=== PATIENT | female | born 1955 | race Caucasian/White ===

== ENCOUNTER 2019-06-29 10:32 | Emergency (ER) | payer OTHER ==
--- OUTSIDE RECORDS SUMMARY | 2019-06-29 10:43 | XMS REPORT | Summary of Care ---
:1955 Author Organization [facility] Address [address] [place] [address] Care Team Providers Name Role Phone Radha Quiñones Primary Care Provider Reason for Referral External Surgery Case (Routine) Status Reason Specialty Diagnoses / Procedures Referred By Contact Referred To Contact Open Diagnoses Endometrial cancer, grade I Earl Melgar Procedures Surgery Case Request, Outside Facilty ONLY MD Leisa [address] [place] [address] [place] [phone] Email: [email or web address] Reason for Visit Reason Comments Consult endometrial cancer Encounter Details Date Type Department Care Team Description 06/08/2019 Office Visit Rust Earl Melgar Endometrial cancer, [place] [facility] MD grade I (Primary Dx) [address] [place] [phone] Allergies No Known Allergiesdocumented as of this encounter (statuses as of 06/08/2019) Medications Medication Sig Dispensed Refills Start Date End Date Status buPROPion HCl ER (XL) 0 03/21/2019 Active 300 MG Oral Tablet Extended Release 24 Hour (WELLBUTRIN XL) miSOPROStol 200 MCG 0 04/26/2019 Active Oral Tablet (CYTOTEC) Rosuvastatin Calcium 10 0 03/21/2019 Active MG Oral Tablet (CRESTOR) [place]-3 Fatty Acids Take 1 capsule by 0 Active (FISH OIL PO) mouth daily Calcium Take 1 tablet by 0 Active Carbonate-Vitamin D mouth daily 500-200 MG-UNIT Oral Tablet (OSCAL-500) Vitamin D3 25 MCG (1000 Take 1,000 Units 0 Active UT) Oral Tablet by mouth daily (CHOLECALCIFEROL) documented as of this encounter (statuses as of 06/08/2019) Active Problems Problem Noted Date Endometrial cancer, grade I 06/08/2019 documented as of this encounter (statuses as of 06/08/2019) Social History Tobacco Use Types Packs/Day Years Used Date Current Every Day Smoker 0.5 40 Smokeless Tobacco: Never Used Tobacco Cessation: Ready to Quit: Yes Comments: down to 4 cigarettes per day Alcohol Use Drinks/Week oz/Week Comments Not Currently Sex Assigned at Date Recorded Not on file Job Start Date Occupation Industry Not on file Not on file Not on file Travel History Travel Start Travel End No recent travel history available. documented as of this encounter Last Filed Vital Signs Vital Sign Reading Time Taken Comments Blood Pressure 143/79 06/08/2019 1:56 PM EST Pulse 81 06/08/2019 1:56 PM EST Temperature - - Respiratory Rate 18 06/08/2019 1:56 PM EST Oxygen Saturation - - Inhaled Oxygen Concentration - - Weight 77.6 kg (171 lb) 06/08/2019 1:56 PM EST Height 162.6 cm (5' 4") 06/08/2019 1:56 PM EST Body Mass Index 29.35 06/08/2019 1:56 PM EST documented in this encounter Patient Instructions Patient InstructionsPeggy Joseph MD - 06/08/2019 2:00 PM EST Family History Problem Relation Age of Onset Breast cancer Mother 71 diagnosed stage IV COPD Father Uterine cancer Sister 55 Diabetes Sister High cholesterol Brother Breast cancer Sister 56 diagnosed stage IV Diabetes Sister Crohn's disease Brother Breast cancer Maternal Aunt documented in this encounter Progress Notes Earl Melgar Jr., MD - 06/08/2019 2:00 PM ESTThe patient was seen and evaluated with Dr. Joseph. I agree with the findings, documentation and plan as written. The patient has an important trip planned for early July so if we cannot complete the surgery prior to her trip we plan to start provera 10 mg daily and will proceed KRISTINE after her return. Peggy Diaz MD - 2019 2:00 PM EST Subjective: Consult (endometrial cancer) HPI: Nicole Rojas is a 64 y.o. female with past medical history most pertinent for dyslipidemia who presents as a new patient for FIGO grade 1 endometrial cancer. She has history of bleeding/spotting 2 years ago and was diagnosed with "fibroids." Uterine biopsy was reportedly negative at that time. She has not had bleeding since. She had a routine pap smear in April 2019 which showed atypical glandular cells. This prompted a colonoscopy with ECC and biopsy showing CIN1, and endometrial biopsy showing grade 1 endometrial adenocarcinoma. She reports no associated symptoms. She denies abnormal bleeding, appetite change, bladder change, bloating, bowel change, constipation, diarrhea, cramping , dyspnea, dyspareunia, fatigue, malaise, nausea , pain in the abdomen, pain in the pelvis, vaginal discharge, vomiting and weight loss. Medication List: Current Outpatient Medications: buPROPion HCl ER (XL) 300 MG Oral Tablet Extended Release 24 Hour ( WELLBUTRIN XL), Calcium Carbonate-Vitamin D 500-200 MG-UNIT Oral Tablet (OSCAL-500), 1 tablet, Oral, Daily miSOPROStol 200 MCG Oral Tablet (CYTOTEC), [place]-3 Fatty Acids (FISH OIL PO), 1 capsule, Oral, Daily Rosuvastatin Calcium 10 MG Oral Tablet (CRESTOR), Vitamin D3 25 MCG (1000 UT) Oral Tablet (CHOLECALCIFEROL), 1,000 Units, Oral, Daily Allergies: Patient has no known allergies. Gynological History: No LMP recorded (lmp unknown). postmenopausal Age at Menarche: 13 Age at First : 28 Age at Menopause: 52 [place] history comments: Substance and Sexual Activity Sexual Activity Not Currently OB History 2 Para 2 Term AB Living Live Births Oncology History: No history exists. Past Medical History: Diagnosis Date Abnormal colonoscopy 2017 "20 polyps" precancerous, repeating soon Dyslipidemia Genetic testing BRCA 1/2 negative per patient, 2018 patient reports extended testing negative Osteopenia Tobacco abuse Past Surgical History: Procedure Laterality Date Appendectomy 1993 Oophorectomy Left Tubal ligation 1985 Social History: reports that she has been smoking. She has a 20.00 pack-year smoking history. She has never used smokeless tobacco. She reports previous alcohol use. She reports that she does not use drugs. Family History Problem Relation Age of Onset Breast cancer Mother 71 diagnosed stage IV COPD Father Uterine cancer Sister 55 Diabetes Sister High cholesterol Brother Breast cancer Sister 56 diagnosed stage IV Diabetes Sister Crohn's disease Brother Breast cancer Maternal Aunt Review of Systems Constitutional: Negative. HENT: Negative. Eyes: Negative. Respiratory: Negative. Cardiovascular: Negative. Gastrointestinal: Negative. Genitourinary: Negative. Musculoskeletal: Negative. Skin: Negative. Allergic/Immunologic: Negative. Neurological: Negative. Psychiatric/Behavioral: Positive for substance abuse. Nervous/anxious: tobacco, quitting with Wellbutrin. Objective: Visit Vitals BP 143/79 Pulse 81 Resp 18 Ht 1.626 m (5' 4") Wt 77.6 kg (171 lb) LMP (LMP Unknown) BMI 29.35 kg/m Physical Exam Constitutional: General: She is not in acute distress. Genitourinary: Vulva, urethra, vagina, cervix, uterus and rectum normal. No right or left adnexal mass present. HENT: Head: Normocephalic. Eyes: Conjunctiva/sclera: Conjunctivae normal. Neck: Musculoskeletal: Normal range of motion and neck supple. Cardiovascular: Rate and Rhythm: Normal rate and regular rhythm. Pulses: Normal pulses. Pulmonary: Effort: Pulmonary effort is normal. Breath sounds: Normal breath sounds. Chest: Breasts: Breasts are symmetrical. Right: No mass. Left: No mass. Abdominal: General: Abdomen is flat. Bowel sounds are normal. There is no distension. Palpations: Abdomen is soft. There is no mass. Musculoskeletal: Normal range of motion. General: No swelling. Lymphadenopathy: Cervical: No cervical adenopathy. Neurological: General: No focal deficit present. Mental Status: She is alert and oriented to person, place, and time. Skin: General: Skin is warm and dry. Psychiatric: Mood and Affect: Mood normal. Behavior: Behavior normal. Data reviewed: 1. Labs: Pap Smear and Pathology Assessment and Plan: Encounter Diagnosis Name Primary? Endometrial cancer, grade I Yes Plan for total laparoscopic hysterectomy, bilateral salpingo oophorectomy with sentinel lymph node sampling, possible open abdominal surgery if needed. Risks , benefits, alternatives to surgery discussed and the patient was agreeable to proceed. She would like to go on vacation in [place] the first week of July. We discussed schedulingand will call her. If surgery will be delayed due to the vacation, discussed starting progestin hormone therapy in the interim. No orders of the defined types were placed in this encounter. No follow-ups on file. The patient was seen and discussed with Dr. Melgar. documented in this encounter Plan of Treatment Health Maintenance Due Date Last Done Comments Hepatitis C Screening (B. 1955 [id number]) MMR Vaccines (1 of 1 - Standard 1957 series) Varicella Vaccines (1 of 2 - 1957 2-dose childhood series) Pneumococcal Vaccine: Pediatrics 1962 (0 to 5 Years) and At-Risk Patients (6 to 64 Years) (1 of 3 - PCV13) DTaP,Tdap,and Td Vaccines (1 - 1963 Tdap) HIV Screening 1969 Cervical Cancer Screening 5 years 1977 Breast Cancer Screening 2 years 2006 Colon Cancer Screening 10 yrs 2006 Zoster Vaccines (1 of 2) 2006 Influenza Vaccine 01/04/2019 Pneumococcal Vaccine: 65+ Years (1 2021 of 2 - PCV13) HIB Vaccines Aged Out No longer eligible based on patient's age to complete this topic Hepatitis A Vaccines Aged Out No longer eligible based on patient's age to complete this topic Hepatitis B Vaccines Aged Out No longer eligible based on patient's age to complete this topic IPV Vaccines Aged Out No longer eligible based on patient's age to complete this topic documented as of this encounter Procedures Procedure Name Priority Date/Time Associated Diagnosis Comments SURGERY CASE REQUEST Routine 06/08/2019 5:10 PM Endometrial cancer, OUTSIDE FACILITY ONLY EST grade I documented in this encounter Results Not on filedocumented in this encounter Visit Diagnoses Diagnosis Endometrial cancer, grade I - Primary documented in this encounter
--- OUTSIDE RECORDS SUMMARY | 2019-06-29 10:43 | XMS REPORT | Continuity of Care Document ---
:1955 External Reference #:[id number] Author Name Radha Banegas RPA-C, MHP (transmitted by agent of provider Natalia Joseph) Address [address] [place] [id number] Problems Active Problems Provider Date Osteochondropathy Radha Banegas RPA-C, MHP Onset: 05/27/2019 Gynecologic examination Jade Marshall MD Onset: 04/13/2018 Intramural leiomyoma of uterus Jade Marshall MD Onset: 11/18/2017 Postmenopausal bleeding Jade Marshall MD Onset: 11/18/2017 Family history of cancer Elisa Mar NP Onset: 01/19/2012 Abnormal cervical Papanicolaou smear Elisa Mar NP Onset: 02/06/2011 Social History Type Date Description Comments Sex Unknown Tobacco Use Start: Unknown Current Cigarette Smoker 5-10 Cigarettes Daily ETOH Use Rarely consumes alcohol Recreational Drug Use Never Used Drugs Tobacco Use Start: Unknown Patient is a current smoker, smokes every day Smoking Status Reviewed: 04/18/19 Patient is a current smoker, smokes every day Exercise Type/Frequency exercises regularly Exercise Type/Frequency 3-4 times per week walking and working out in the garden Seat Belt/Car Seat always uses seat belt Allergies, Adverse Reactions, Alerts Active Allergies Reaction Severity Comments Date NKDA 09/22/2006 Cantaloupe 01/02/2011 Medications Active Medications SIG Qnty Indications Ordering Date Provider Misoprostol one tab 1tabs Lea Butt, 04/26/2019 200mcg intravaginally 18 MD Tablets hours prior to procedure. Fish Oil 2 x qd Unknown 1000mg Capsules Calcium 500/D Unknown [id number] Chewtabs Multivitamins Unknown Capsules Wellbutrin XL 1 by mouth every day( Unknown 150mg taking to stop Tablets ER 24HR smoking and with her anxiety) Crestor every day Unknown 10mg Tablets Immunizations Description No Information Available Vital Signs Date Vital Result Comment 05/27/2019 9:04am BP Systolic 138 mmHg BP Diastolic 80 mmHg Weight 174.00 lb Height 63 inches 5'3" BMI (Body Mass Index) 30.8 kg/m2 04/18/2019 2:37pm BP Systolic 128 mmHg BP Diastolic 76 mmHg Weight 174.00 lb Height 63 inches 5'3" BMI (Body Mass Index) 30.8 kg/m2 Results Test Acquired Date Facility Test Result H/L Range Note Laboratory test 05/27/2019 [facility] <pending> finding hology Laboratory test 04/18/2019 [facility], Apt Note Abnormal 1 finding HPV,rfx 16/18,45 PDF [id number] SEE IMAGE 1 TESTS RESULT FLAG UNITS REF RANGE LAB Clinician Provided Cytology Information Source.............Endocervix;Vagina Other..............Post Menopausal No. of containers..01 ThinPrep Vial DIAGNOSIS: [A] 01 EPITHELIAL CELL ABNORMALITY. ATYPICAL GLANDULAR CELLS (AGC). Specimen adequacy: 01 Satisfactory for evaluation. Endocervical and/or squamous metaplastic cells (endocervical component) are present. Clinician ICD10: Z12.4 Performed by: Chrissy Jimenez, Building Estimator ([facility]) QC reviewed by: Cate Day Building Estimator ([facility]) Electronic signed by Brayan Saba MD, Pathologist . 01 Pathologist ICD10: R87.619 Note: Note 01 The Pap smear is a screening test designed to aid in the detection of premalignant and malignant conditions of the uterine cervix. It is not a diagnostic procedure and should not be used as the sole means of detecting cervical cancer. Both false-positive and false-negative reports do occur. Test Methodology: Note 01 This liquid based ThinPrep(R) pap test was screened with the use of an image guided system. HPV Aptima Negative (Negative) 02 This nucleic acid amplification test detects fourteen high-risk HPV types (16,18,31,33,35,39,45,51,52,56,58,59,66,68) without differentiation. FLAG LEGEND: L-Low Normal,H-High Normal,LL-Alert Low,HH-Alert High <-Panic Low,>-Panic High,A-Abnormal,AA-Critical Abnormal Performed at: 01 [facility] [address] [place] [phone] Brayan Saba MD, 02 [facility] [address] [place] [phone] Brayan Saba MD, Procedures Date Code Description Status 05/27/2019 82020 Endometrial Biopsy W/O Cervical Dilation Completed 05/27/2019 25964 Colposcopy Of Cervix W/Biopsy Cervix/Endocervical Completed Curettage 04/06/2018 64319322 Mammogram Completed 04/06/2017 29753941 Colonoscopy Completed 04/06/2010 810348245 Bone Mineral Density Test Completed Medical Devices Description No Information Available Encounters Type Date Location Provider Dx Diagnosis Office Visit 05/27/2019 [facility] Radha Banegas, R87.619 Unsp abnormal 9:15a RPA-C, P cytolog findings in specmn from cervix uteri M85.89 Oth disrd of bone density and structure, multiple sites Office Visit 04/18/2019 3:00p [place] [facility] Lea Butt, Z01.419 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 (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) (routine) w/o abn findings Z80.3 Family history of malignant neoplasm of breast Assessments Date Code Description Provider 05/27/2019 R87.619 Unspecified abnormal cytological Radha Banegas, JIAN-C, MHP findings in specimens from cervix uteri 05/27/2019 M85.89 Other specified disorders of bone Radha Banegas RPA-C, MHP density and structure, multiple sites 04/18/2019 Z01.419 Encounter for gynecological Lea Butt MD examination (general) (routine) without abnormal findings 04/18/2019 Z80.3 Family history of malignant neoplasm Lea Butt MD of breast Plan of Treatment 05/27/2019 - Radha Banegas RPA-C, MHPR87.619 Unspecified abnormal cytological findings in specimens from cervix uteriComments:Reviewed pap findings and indication for colposcopy and endometrial biopsy. Consent obtained. Colposcopy and endometrial biopsy performed today. Please see procedure note. Post colposcopy instructionsverbally reviewed and instruction sheet provided.Follow up:FYE 04/20207806U03.89 Other specified disorders of bone density and structure, multiple sitesComments:Reviewed finding of osteopenia of hip and spine per dexa scan done on 05/02/19. Advised weight-bearing exercise, calcium 1200mmg daily and vitamin D3 2000IU daily. Functional Status Functional Condition Comment Date Status Glasses Active Mental Status Description No Information Available Referrals Description No Information Available
--- OUTSIDE RECORDS SUMMARY | 2019-06-29 10:43 | XMS REPORT | Continuity of Care Document ---
:1955 External Reference #:[id number] Author Name Fransisco Waller PA Address [address] [facility], [address] [place] [address] Care Team Providers Name Role Phone Stefanie Ramirez M.D. - Family Medicine Care Team Information [employer] Problems Active Problems Provider Date First degree hemorrhoids Levar Goins MD Onset: 08/12/2017 Diverticular disease of colon Levar Goins MD Onset: 08/12/2017 Benign neoplasm of colon Levar Goins MD Onset: 08/12/2017 Screening for malignant neoplasm of colon Levar Goins MD Onset: 05/29/2017 Social History Type Date Description Comments Sex Unknown Smokeless Tobacco Never Used Smokeless Tobacco ETOH Use Rarely consumes alcohol Tobacco Use Start: Unknown Light tobacco smoker (10 or fewer cigarettes/day) Recreational Drug Use Denies Drug Use Smoking Status Reviewed: 06/02/19 Light tobacco smoker (10 or fewer cigarettes/day) Allergies, Adverse Reactions, Alerts Description No Known Drug Allergies Medications Active Medications SIG Qnty Indications Ordering Date Provider Suprep Bowel Prep Kit as directed 354ml Z12.11 Umberto Darnell, 06/02/2019 17.5-3.13-1.6GM/177ML Solution Gas-X as directed pre 2units Z12.11 Umberto Darnell, 06/02/2019 80mg Chewtabs colonscopy Fish Oil Extra 2 po q Am Unknown Strength 1200mg Capsules Multivitamin Adult 1 by mouth every Unknown day Tablets Benefiber 2 tabs by mouth Unknown Powder every day every evening Bupropion HCL ER (XL) once daily Stefanie Ramirez M.D. 150mg Tablets ER 24HR Vitamin D3 Complete 2000 iu daily Unknown Tablets Rosuvastatin Calcium Take 1 Tablet By Unknown Mouth Every Day 10mg Tablets Every Night Immunizations Description No Information Available Vital Signs Date Vital Result Comment 06/02/2019 11:30am BP Systolic Sitting Left Arm 120 mmHg BP Diastolic Sitting Left Arm 88 mmHg Body Temperature 97.7 F Heart Rate 81 /min Respiratory Rate 16 /min Height 66 inches 5'6" Weight 173.00 lb Pain Level 0 BMI (Body Mass Index) 27.9 kg/m2 BSA (Body Surface Area) 1.88 m2 [place] body weight in kilograms 59 kg O2 % BldC Oximetry 97 % 08/12/2017 2:21pm BP Systolic Sitting Right Arm 120 mmHg BP Diastolic Sitting Right Arm 84 mmHg Heart Rate 86 /min Respiratory Rate 18 /min Height 66 inches 5'6" Weight 174.00 lb BMI (Body Mass Index) 28.1 kg/m2 BSA (Body Surface Area) 1.88 m2 [place] body weight in kilograms 59 kg Results Description No Information Available Procedures Date Code Description Status 06/16/2017 17748691 Colonoscopy Completed Medical Devices Description No Information Available Encounters Type Date Location Provider Dx Diagnosis Office Visit 06/02/2019 11:15a [facility] Fransisco Waller PA K63.5 Polyp of colon Z12.11 Encounter for screening for malignant neoplasm of colon Assessments Date Code Description Provider 06/02/2019 K63.5 Polyp of colon Fransisco Waller PA 06/02/2019 Z12.11 Encounter for screening for malignant Fransisco Waller PA neoplasm of colon Plan of Treatment Future Appointment(s):08/08/2019 4:00 pm - Fransisco Waller PA at GI2019 1:30 pm - Fransisco Waller PA at GI06/02/2019 - Fransisco Waller PAK63.5 Polyp of scechV67.11 Encounter for screening for malignant neoplasm of colonNew Medication:Suprep Bowel Prep Kit 17.5-3.13-1.6 GM/177ML - as directedGas-X 80 mg - as directed pre colonscopyNew Orders:Colonoscopy, Ordered : 06/02/19 Functional Status Description No Information Available Mental Status Description No Information Available Referrals Description No Information Available
--- OUTSIDE RECORDS SUMMARY | 2019-06-29 10:43 | XMS REPORT | Continuity of Care Document ---
:1955 External Reference #:[id number] Author Name Fransisco Waller PA (transmitted by agent of provider Mary Ellen Ham) Address [address] [place] [address] Care Team Providers Name Role Phone Stefanie Ramirez M.D. 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 Problems Active Problems Provider Date First degree [...] kg/m2 BSA (Body Surface Area) 1.88 m2 [place] body weight in kilograms 59 kg O2 % BldC Oximetry 97 % 08/12/2017 2:21pm BP Systolic Sitting Right Arm 120 mmHg BP Diastolic Sitting Right Arm 84 mmHg Heart Rate 86 /min Respiratory Rate 18 /min Height 66 inches 5'6" Weight 174.00 lb BMI (Body Mass Index) 28.1 kg/m2 BSA (Body Surface Area) 1.88 m2 [place] body weight in kilograms 59 kg Results Description No Information Available Procedures Date Code Description Status 06/16/2017 03400040 Colonoscopy Completed Medical Devices Description No Information [...] neoplasm of colon Plan of Treatment Future Appointment(s):07/25/2019 11:30 am - Umberto Darnell MD at Operating Room08/08/2019 4:00 pm - Fransisco Waller PA at GI07/18/2019 1:30 pm - Fransisco Waller PA at GI06/02/2019 - Fransisco Waller PAK63.5 Polyp of tpuinB90.11 Encounter for screening for malignant neoplasm of colonNew Medication:Suprep Bowel Prep Kit 17.5-3.13-1.6 GM/177ML - as directedGas-X 80 mg - as directed pre colonscopyNew Orders:Colonoscopy, Ordered: 06/02/19 Functional Status Description No Information Available Mental Status Description No Information Available Referrals Description No Information Available
--- OUTSIDE RECORDS SUMMARY | 2019-06-29 10:43 | XMS REPORT | Continuity of Care Document ---
:1955 External Reference #:[id number] Author Name Radha Banegas RPA-C, GABRIELA (transmitted by agent of provider Natalia Joseph) Address [address] [place] [phone] Problems Active Problems Provider Date Gynecologic examination Jade Marshall MD Onset: 04/13/2018 [...] qd Unknown 1000mg Capsules Calcium 500/D Unknown [id number] Chewtabs Multivitamins Unknown Capsules Wellbutrin XL 1 [...] Test Result H/L Range Note Laboratory test 04/18/2019 [facility], Apt Note Abnormal 1 finding HPV,rfx 16/18,45 PDF [id number] SEE IMAGE 1 TESTS RESULT FLAG UNITS REF RANGE LAB Clinician Provided Cytology Information Source.............Endocervix;Vagina Other..............Post Menopausal No. of containers..01 ThinPrep Vial DIAGNOSIS: [A] 01 EPITHELIAL CELL ABNORMALITY. ATYPICAL GLANDULAR CELLS (AGC). Specimen adequacy: 01 Satisfactory for evaluation. Endocervical and/or squamous metaplastic cells (endocervical component) are present. Clinician ICD10: 01 Z12.4 Performed by: Chrissy Jimenez, Cafeteria Worker ([facility]) QC reviewed by: Cate Day Cafeteria Worker ([employer]) Electronic signed by Brayan Saba MD, Pathologist [...] <-Panic Low,>-Panic High,A-Abnormal,AA-Critical Abnormal Performed at: 01 [facility] [address] [place] [phone] Brayan Saba MD, 02 [facility] [address] [phone] Brayan Saba MD, Procedures Date Code Description Status 04/06/2018 [id number] Mammogram Completed 04/06/2017 99835245 Colonoscopy Completed 04/06/2010 792318574 Bone Mineral Density Test Completed Medical Devices Description No Information Available Encounters Type Date Location Provider Dx Diagnosis Office Visit 04/18/2019 [facility] Office Lea uBtt MD Z01.419 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 3:00p exam (general) (routine) w/o abn findings Z80.3 Family history of malignant neoplasm of breast Assessments Date Code Description Provider 04/18/2019 Z01.419 Encounter for gynecological examination (general) Lea Butt MD (routine) without abnormal findings 04/18/2019 Z80.3 Family history of malignant neoplasm of breast Lea Butt MD Plan of Treatment 04/18/2019 - Lea uBtt MDZ01.419 Encounter for gynecological examination ( general) (routine) without abnormal findingsNew Xrays:Mammography, Screening Bilateral, Ordered: 04/18/19Comments:pap per guideline sbe and julita needs bdneeds colonoscopy - will set up in june with gicardiac genetics an depression scale reviewed fye one yearFollow up:.Z80.3 Family history of malignant neoplasm of breast Functional Status Functional Condition Comment Date Status Glasses Active Mental Status Description No Information Available Referrals Description No Information Available
--- NOTE | 2019-06-29 11:17 | UC ---
[facility] Previously Healthy: Yes Endocrine/Hematology History: Denies: Hx Anticoagulant Therapy, Hx Blood Disorders, Hx Blood Transfusions, Hx Bone Marrow Disease, Hx Diabetes, Hx Systemic Lupus Erythematosus, Hx Sickle Cell Disease, Hx Thyroid Disease, Hx Anemia, Hx Unexplained Bleeding, Hx Coagulopothy, Autoimmune Disease, Other Endocrine/Hematological Disorders Cardiovascular History: Reports: Hx Hypercholesterolemia Respiratory History: Denies: Hx Asthma, Hx Bronchopulmonary Dysplasia, Hx Chronic Bronchitis, Hx Chronic Obstructive Pulmonary Disease (COPD), Hx Cystic Fibrosis, Hx Lung Cancer , Hx Pleural Effusion, Hx Pneumonia, Hx Pulmonary Edema, Hx Pulmonary Embolism, Hx Seasonal Allergies, Hx Sleep Apnea, Other Respiratory Problems/Disorders GI History: Denies: Hx Cirrhosis, Hx Crohn's Disease, Hx Diverticulosis, Hx Gall Bladder Disease, Hx Gastroesophageal Reflux Disease, Hx Gastrointestinal Bleed, Hx Hiatal Hernia, Hx Irritable Bowel, Hx Jaundice, Hx Obstructive Bowel, Hx Ileostomy, Hx Pyloric Stenosis, Hx Ulcer, Hx Urosepsis, Other GI Disorders History: Reports: Other Problems/Disorders - endometrosis, sx next week. Musculoskeletal History: Denies: Hx Osteoporosis Sensory History: Denies: Hx Cataracts, Hx Contacts or Glasses, Hx Eye Injury, Hx Eye Prosthesis, Hx Glaucoma, Hx Legally Blind, Hx Macular Degeneration, Hx Vision Problem, Hx Deafness, Hx Hearing Aid, Hx Hearing Problem, Hx Auditory Problems, Other Sensory Impairments EENT History: Reports: Other - current ST, and sinus congestion, PND X 2 days Neurological History: Denies: Hx CVA, Hx Dementia, Hx Developmental Delay, Hx Headaches, Hx Migraine, Hx Nerve Disease, Hx Peripheral Neuropathy, Hx Seizures, Hx Spinal Cord Injury, Hx Transient Ischemic Attacks (TIA), Hx CVP, Other Neuro Impairments/Disorders Psychiatric History: Reports: Hx Depression - Cancer History Hx Hematologic Symptoms: No Hx Chemotherapy: No Hx Radiation Therapy: No - Surgical History Surgery Procedure, Year, and Place: appy. tubal. oophrectomy - Immunization History Immunizations Up to Date: Yes Infectious Disease History: No - Family History Known Family History: Positive: Other - mom had breast cancer - Social History Occupation: Employed Full-time Lives: With Family Alcohol Use: None Hx Substance Use: No Substance Use Type: Reports: None Smoking Status (MU): Light Every Day Tobacco Smoker Type: Cigarettes Amount Used/How Often: 5-6 cigarettes daily Have You Smoked in the Last Year: Yes Household Exposure: No UC Telehealth ROS All Other Systems Reviewed And Are Negative: Yes Constitutional: Negative Eyes: Negative Positive: Nasal Discharge, Other - left side maxillary tenderness Respiratory: Negative Gastrointestinal: Negative Genitourinary: Negative Musculoskeletal: Negative Skin: Negative Neurological/Mental Status: Negative Positive: Headache Psychological: Normal Telehealth Telehealth Physical Exam: Telemed conducted at [facility]. Pt in parking lot Appearance: Positive: Well-Appearing Eyes: Positive: Normal ENT: Positive: Other - left sinus tenderness, and ST Neck: Positive: Nontender Respiratory/Lung Sounds: Positive: Cough Cardiovascular: Positive: Skin Color Reflects Adequate Perfusion Musculoskeletal: Positive: Normal Tone Neurological: Positive: Alert, Oriented to Person Place, Time Psychiatric: Positive: Normal Telehealth Course/Dx Assessment/Plan: NO concern for COVID Provider Diagnoses: Sinusitis Telehealth Disposition Provider Recommendation for Treatment: Urgent Care Telehealth Visit: Patient Consented Verbally to Telehealth Visit Telehealth Patient Statement: The patient should understand that they are communicating with their provider via a secure communication platform and that all the same privacy and confidentiality rules apply. They will also be responsible for copayments or coinsurances that apply to any Telehealth visit. Patient Identifiers: 2 Patient Identifiers Verified for Telehealth Visit Telehealth Visit Start Time: 11:30 Telehealth Visit End Time: 11:40 Telehealth Provider Attestation: The above services were appropriate to provide in a Telehealth setting.
== END 2019-06-29 11:55 | disposition home or self-care (01) ==
LOC: UCCORT 10:32
DX: J32.9 Chronic sinusitis, unspecified (principal); E78.00 Pure hypercholesterolemia, unspecified; F32.9 Major depressive disorder, single episode, unspecified; Z79.899 Other long term (current) drug therapy; F17.210 Nicotine dependence, cigarettes, uncomplicated
CPT/HCPCS: 87651; 99212; G0463